=== PATIENT | female | born 1990 | race Caucasian/White ===

== ENCOUNTER → 2016-11-10 | Outpatient (CLI) | payer MEDICAID ==
--- NOTE | 2016-11-10 19:29 | DX ---
Thoracic spine, 2 views History: Lumbar fusion 14 years ago, midthoracic pain with no injury. Comparison: None available. Findings: There are left lateral screws entering the T12, L1, L2 and L3 vertebral bodies with interv ertebral graft material noted anteriorly with apparent interosseous fusion, with lumbar fusion hardwa re incompletely visualized. The visualized hardware is intact without evidence of loosening. Alignmen t is normal. Mild to moderate vertebral spondylosis is present at T11-T12. There is no significant de generative change in the remainder of the thoracic spine. Impression: 1. Mild to moderate vertebral spondylosis at T11-T12. 2. Incomplete visualization of thoracolumbar fusion.
== END ==
LOC: CIMAGING 13:53
PROVIDERS: ATTEND Internal Medicine
DX: M47.894 Other spondylosis, thoracic region (principal)
CPT/HCPCS: 72072-PO

== ENCOUNTER → 2017-03-30 | Outpatient (CLI) | payer MEDICAID | LOC: FIMAGING 12:32 | PROVIDERS: ATTEND Internal Medicine | DX: R91.8 Other nonspecific abnormal finding of lung field (principal); R30.0 Dysuria; N60.11 Diffuse cystic mastopathy of right breast; N60.12 Diffuse cystic mastopathy of left breast; Z72.0 Tobacco use ==

== ENCOUNTER → 2017-09-14 | Outpatient (CLI) | payer MEDICAID | LOC: FIMAGING 09:17 | PROVIDERS: ATTEND Internal Medicine Hematology & Oncology | DX: Z12.39 Encounter for other screening for malignant neoplasm of breast (principal); N63.10 Unspecified lump in the right breast, unspecified quadrant; N63.20 Unspecified lump in the left breast, unspecified quadrant ==